=== PATIENT | female | born 1955 | race Caucasian/White ===

== ENCOUNTER 2023-05-08 13:39 | Emergency (ER) | payer MEDICARE, SELFPAY ==
[2023-05-08 13:48] VITALS: BP 186/92; PULSE 63; RESP 18; TEMP 36.6; O2SAT 100; BMI 34.9
--- NOTE | 2023-05-08 13:54 | ED_ITS ---
<Statement entered by Myke Galeana MD - 05/08/23 21:01> The saw this patient with physician news production assistant and agree with the plan. HPI - Allergic Reaction General Chief complaint: Allergic Reaction Stated complaint: facial swelling diff breathing Time Seen by Provider: 05/08/23 13:42 Source: patient Mode of arrival: ambulatory Limitations: no limitations History of Present Illness HPI narrative: 67 year old female with no significant pmhx presents to the ED today for evaluation of lip/facial swelling on waking up this morning.Reports itchy hives intermittent x2 weeks. Has been taking zyrtec with some relief of symptoms. Last dose last night. Reports waking this morning with swelling to both cheeks that began moving to the right side of her upper lip, now affecting her entire upper lip. States that this swelling has been worsening over the last hour. Reports slight throat discomfort however does not feel as though her throat is closing. She denies difficulty speaking or swallowing. States this is her normal voice. She is able to control her secretions and can speak in complete sentences. Admits to switching detergents a few weeks ago prior to onset of hives. Additionally switched from gummy to capsule vitamin D recently. Does not take medication on a daily basis. Denies use of ACEis or ARBs. No new lotions, soaps. No new foods. Of note, her daughter has a history of anaphylaxis to specific detergents. Related Data Previous Rx's Medication Instructions Recorded diphenhydramine HCl 50 mg tablet 50 mg PO Q8H PRN allergic reaction 05/08/23 (Benadryl Allergy) #14 tabs epinephrine 0.3 mg/0.3 mL 0.3 mg (0.3 mL) IM Q10M PRN 05/08/23 injection, auto-injector anaphylaxis #2 ea prednisone 50 mg tablet 50 mg PO DAILY 5 days #5 tabs 05/08/23 Allergies Allergy/AdvReac Type Severity Reaction Status Date / Time No Known Allergies Allergy Unverified 01/30/20 19:46 [No Known Allergies*] Review of Systems 2 Review of Systems: Constitutional: No fever, chills, fatigue, night sweats, weight changes ENT/Mouth: No ear pain, hearing loss, nasal congestion, sinus pain, rhinorrhea, sore throat, +swelling to upper lip Eyes: No eye pain, swelling, redness, vision changes, discharge Cardio: No chest pain, palpitations, JASMINE, orthopnea, peripheral edema Pulm: No SOB, cough, sputum, wheezing, dyspnea, hemoptysis GI: No nausea, vomiting, hematemesis, abdominal pain, diarrhea, constipation, hematochezia, melena : No irregular bleeding, dysuria, frequency, urgency, hesitancy, hematuria, flank pain, urinary flow changes, urinary incontinence or retention MSK: No back pain, neck pain, joint pain, myalgias Skin: No lesions, rashes Neuro: No weakness, numbness, paresthesias, LOC, dizziness, headache All other systems reviewed and are negative. [facility] Past Medical History Attestation statement: The following information was validated with the patient. Source: old records reviewed and nursing notes reviewed Social History Social History Advance Directives: No Advance Directives Information Provided: Yes Physical Exam ED Vital Signs: Vital Signs - 24 hr 05/08/23 13:48 05/08/23 14:17 05/08/23 15:51 Temperature 97.8 F Pulse Rate 63 70 73 Respiratory Rate 18 12 Blood Pressure 186/92 H 186/92 H 120/45 L Pulse Oximetry 100 97 Oxygen Delivery Method Room Air Room Air BMI result Body Mass Index 34.9 Vital signs stable, hypertensive likely situational Const General: cooperative, healthy appearing, comfortable, no acute distress, alert and awake Orientation/consciousness: patient oriented x3 Limitations: no limitations HENMT Other: + refer to photo below + no edema noted to bilateral cheeks + nonpitting edema noted to entire upper lip. No involvement of the lower lip. + posterior oropharynx without edema. no tonsillar edema. uvual midline, mildly edematous. tongue wnl. controlling secretions and speaking in complete sentences. + no muffled or hoarse voice Head: Yes normal to inspection Ears: hearing grossly normal bilaterally Eyes General: appearance normal, both eyes and all related structures Periorbital: periorbital findings normal Conjunctivae: conjunctivae normal Sclerae: sclerae normal Pupils: Equal, round and reactive pupils present EOM: EOMs intact bilaterally Neck Neck: Yes normal visual inspection, Yes full ROM and Yes no lymphadenopathy Resp Other: + airway patent, speaking in complete full sentences. Effort & Inspection: normal respiratory effort, able to speak in complete sentences, no respiratory distress and no use of accessory muscles Auscultation: clear to auscultation bilaterally Cardio Rate: regular rate Rhythm: regular rhythm Peripheral pulses: radial pulses present GI Inspection: Yes normal to inspection Palpation (GI): Soft to palpation and nontender Skin Other: + no urticaria General skin exam: no rashes or lesions noted Neuro General: patient oriented x3, gait normal and moves all extremities Cranial nerves: Yes Equal, round and reactive pupils present Extrem General: Yes normal to inspection Course Course Course Narrative: 1416-- case discussed with my attending physician, Dr. Galeana, who also evaluated patient. He is in agreement that patient's uvula is mildly edematous. Will give one dose of EPI in addition to the Pepcid, Solu-Medrol, Benadryl. 1629-- On re-evaluation, swelling to face/ upper lip have improved immensely. Patient states that she feels better and no longer has discomfort in her throat. Uvula is midline without edema. Lungs are CTA bilaterally. Airway patenent without signs of acute respiratory distress. Vital signs stable. >> patient has been observed for over 2-1/2 hours with improvement in symptoms. I discussed with my attending physician, Dr. Galeana who agrees that patient can be discharged home with prednisone and Benadryl with strict return precautions. Will also send epi pen to pharmacy for emergencies. Patient educated on Epi pen use. Patient states that she has an appointment with her PCP in 1 week. I informed her that she may need allergy testing. Patient has remained stable throughout ED visit today. Discussed worrisome signs symptoms and when to return to emergency department. All questions answered at this time. Patient is agreeable with disposition and stable for discharge. Medications Administered Discontinued Medications Generic Name Dose Route Start Last Admin Trade Name Freq PRN Reason Stop Dose Admin Diphenhydramine HCl 50 mg 05/08/23 14:04 05/08/23 14:05 Diphenhydramine Hcl 50 Mg/Ml Vial IVPUSH 05/08/23 14:05 50 mg ONCE ONE Administration Epinephrine 0.3 mg 05/08/23 14:15 05/08/23 14:17 Epinephrine 1 Mg/Ml Vial IM 05/08/23 14:16 0.3 mg STAT STA Administration Famotidine 20 mg 05/08/23 13:42 05/08/23 14:05 Famotidine/Pf 20 Mg/2 Ml Vial IVPUSH 05/08/23 13:43 20 mg ONCE ONE Administration Methylprednisolone Sodium Succinate 125 mg 05/08/23 14:04 05/08/23 14:05 Methylprednisolone Sod Succ 125 Mg/2 Ml Vial IVPUSH 05/08/23 14:05 125 mg ONCE ONE Administration Medical Decision Making Medical Decision Making MDM Narrative: 67 year old female with no significant pmhx presents to the ED today for evaluation of lip/facial swelling on waking up this morning. Vital signs notable for hypertension to 186/92, likely situational. She does not have a history of hypertension and not take antihypertensives. Asymptomatic. Will recheck. On exam there is nonpitting edema noted to entire upper lip. No involvement of the lower lip. posterior oropharynx without edema. no tonsillar edema. uvual midline without edema. tongue wnl. controlling secretions and speaking in complete sentences. no muffled voice. No skin rashes or urticaria. No flushing. Lungs CTA bilaterally. Airway patent. Clinical concern for allergic reaction, contact dermatitis, medication reaction. Low suspicion for angioedema, airway compromise, hypertensive urgency or emergency, anaphylaxis. Plan for monitoring coordinator, steroid, Benadryl, Pepcid, EPI, observation, and re-evaluation. Differential Diagnosis Differential Diagnoses: The differential diagnosis associated with the presentation includes as above. Admission/Observation Consideration of admission/observation: Escalation of care including admission/observation considered In patient presents with acute onset allergic reaction, admission was considered. External Record Review External record reviewed: Inpatient record Prescription Management I considered prescription management with: Other (steroid, antihistamine) Critical Care Time Critical Care Time Critical Care Time: Yes Total Critical Care Time: 40 Attestation: Critical care time in the amount of 40 minutes has been provided to the patient in terms of direct patient care, frequent reevaluation, and management of potentially life-threatening conditions. This is all outside of any medical procedures. Discharge Plan Discharge Clinical Impression: Allergic reaction Patient Disposition: Home, Self-Care Instructions: General Allergic Reaction (ED), Allergy Testing (ED) Additional Instructions: You had an allergic reaction to an unknown substance today. Prednisone as a steroid that has been sent to your pharmacy. Take this as directed over the next 5 days. Continue taking 50mg Benadryl every 6-8 hours. Uses medication with caution as it may make you drowsy. An Epi pen has been sent to your pharmacy as well for acute allergic reactions. If you feel as though you are having an allergic reaction or year airway is closing, use the EpiPen. If you do use the EpiPen you need to call 911 immediately after for medical evaluation as you can have a rebound reaction. Keep your appointment with your primary care provider next week. Avoid known triggers. If your symptoms persist or worsen, you feel as though your throat is closing, have chest pain or feel generally unwell please return to the emergency department. In the case of an emergency call 911. Prescriptions: New prednisone 50 mg tablet 50 mg PO DAILY 5 Days Qty: 5 0RF Benadryl Allergy 50 mg tablet 50 mg PO Q8H PRN (Reason: allergic reaction) Qty: 14 0RF epinephrine 0.3 mg/0.3 mL auto-injector 0.3 mg IM Q10M PRN (Reason: anaphylaxis) Qty: 2 0RF Rx Instructions: for 2 doses Interventions: ED Discharge Assessment Last Done: 05/08/23 16:44 Discharge Date/Time: 05/08/23 16:44
[2023-05-08] MEDS: Famotidine/PF 20 MG/2 ML VIAL IVPUSH (14:05)
[2023-05-08] MEDS: methylPREDNISolone Sod Succ 125 MG/2 ML VIAL IVPUSH (14:05)
[2023-05-08] MEDS: diphenhydrAMINE HCL 50 MG/ML VIAL IVPUSH (14:05)
--- NOTE | 2023-05-08 14:14 | PC.NURSE ---
continues to show no signs/symptoms of distress. able to speak in full clear sentences, airway remains patent. iv established, medicated per the MAR.
[2023-05-08 14:17] VITALS: BP 186/92; PULSE 70
[2023-05-08] MEDS: EPINEPHrine 1 MG/ML VIAL 0.3 MG IM (14:17)
--- NOTE | 2023-05-08 14:58 | PC.NURSE ---
continues to rest quietly in room at this time, no obvious signs/symptoms of distress noted. call ryan remains within reach.
[2023-05-08 15:51] VITALS: BP 120/45; PULSE 73; RESP 12; O2SAT 97
--- NOTE | 2023-05-08 15:52 | PC.NURSE ---
patient's lip appears much less swollen at this time, also stating that her throat is feeling better as well. vss, call yran within reach
== END 2023-05-08 16:44 | disposition home or self-care (01) ==
PROVIDERS: Emergency Provider Emergency Medicine; PCP Internal Medicine Cardiovascular Disease
DX: T78.40XA Allergy, unspecified, initial encounter (principal); X58.XXXA Exposure to other specified factors, initial encounter
CPT/HCPCS: 96372; 96374; 96375; 99284; J0171; J1200; J2930

== ENCOUNTER → 2023-08-29 13:58 | Outpatient (REF) | payer MEDICARE, SELFPAY | LOC: HO.SL 13:58 | PROVIDERS: PCP Internal Medicine; Visit Provider Otolaryngology | DX: G47.33 Obstructive sleep apnea (adult) (pediatric) (principal) | CPT/HCPCS: 95806 ==

== ENCOUNTER → 2023-08-29 19:00 | Outpatient (BNV) | payer MEDICARE, SELFPAY | PROVIDERS: PCP Internal Medicine; Visit Provider Internal Medicine | DX: G47.33 Obstructive sleep apnea (adult) (pediatric) (principal) | CPT/HCPCS: 95806 ==